=== PATIENT | female | born 1985 | race Caucasian/White ===

== ENCOUNTER 2023-01-03 02:05 | Inpatient (IN) ==
[2023-01-03] MEDS ORDERED: Promethazine INJ(RESTRICTED) 25 MG/ML 1 ml VIAL IV PRN (04:20)
[2023-01-03] MEDS ORDERED: Lactated Ringers 1000 ml BAG 1,000 ML IV ONE ×2 (04:20→05:40)
[2023-01-03] MEDS ORDERED: Buffered Lidocaine 1% SYRIN 1 ml INTRADERM ONE (04:20)
[2023-01-03] MEDS ORDERED: Nalbuphine 10 MG/ML 1 ML VIAL IV PRN (04:20)
[2023-01-03] MEDS ORDERED: OBEPIDURAL (200 ML) 200 ML EPIDURAL ONE (04:33)
[2023-01-03] MEDS ORDERED: Lidocaine 1% w EPI 1:200,000 SDV 30 ML VIAL ONE (04:34)
[2023-01-03 04:59] LABS: ABS Lymphocytes 1.4 10^3/uL (1.0-4.8); ABS Nucleated RBC 0.01 10^3/ul; Eosinophil % 0.1 %; Hematocrit 36.3 % (35-45); Hemoglobin 12.8 g/dL (11.5-14.3); Lymphocyte % 7.9 %; Mean Corpuscular Hemoglobin 34.1 pg (27-33); Mean Corpuscular Hgb Conc 35.2 g/dL (31-36); Mean Platelet Volume 7.8 fL (7.5-11.2); Nucleated Red Blood Cells % 0.1 /100 WBC (0.0-0.4); Platelet Count 192 10^3/uL (150-450); Red Blood Count 3.74 10^6/uL (3.63-4.92); Red Cell Distribution Width 13.4 % (12-17); White Blood Count 17.4 10^3/uL (3.8-11.8)
[2023-01-03] MEDS ORDERED: Lactated Ringers 1000 ml BAG 1,000 ML IV SCH ×4 (05:00→11:00)
[2023-01-03 05:14] LABS: Urine Benzodiazepine Screen None Detected (None Detect); Urine Cannabinoids Screen None Detected (None Detect); Urine Opiates Screen None Detected (None Detect)
[2023-01-03] MEDS ORDERED: Sodium Citrate/Citric Acid LIQ 15 ML UDC PO PRN (05:40)
[2023-01-03] MEDS ORDERED: Phenylephrine 40 mcg/mL 10mL (400mcg) SYRINGE IV PUSH PRN ×2 (05:40)
[2023-01-03] MEDS ORDERED: Lactated Ringers 1000 ml BAG 500 ML IV PRN ×2 (05:40)
[2023-01-03] MEDS ORDERED: OBEPIDURAL (200 ML) 200 ML EPIDURAL SCH (06:00)
[2023-01-03 06:38] LABS: Urine Appearance Cloudy; Urine Bilirubin Negative (Negative); Urine Blood 2+ (Negative); Urine Color Amber; Urine Glucose Negative (Negative); Urine Ketones Trace (Negative); Urine Nitrite Negative (Negative); Urine Protein 1+(30 mg/dL) (Negative); Urine Specific Gravity 1.026 (1.002-1.030); Urine Urobilinogen Negative (Negative)
[2023-01-03 06:41] LABS: Urine Bacteria Absent (Absent); Urine Red Blood Cell 3+(>10/hpf) (Absent); Urine Squamous Epithelial Cell Present (Absent); Urine White Blood Cell 1+(6-10/hpf) (Absent)
[2023-01-03] MEDS ORDERED: Oxytocin in LR 20,000 MILLI.UNIT/1,000 ML BAG IV SCH ×2 (09:30→10:45)
[2023-01-03] MEDS ORDERED: Glycerin ADULT 2.4 gm SUPP PR PRN (10:39)
[2023-01-03] MEDS: Witch Hazel PAD JAR TOPICAL PRN (13:36)
[2023-01-03] MEDS: Dibucaine 1% OINT 28.35 GM TUBE PR PRN (13:37)
[2023-01-04 06:54] LABS: ABS Basophils 0.1 10^3/uL (0.0-0.1); ABS Eosinophils 0.1 10^3/uL (0.0-0.5); ABS Lymphocytes 2.4 10^3/uL (1.0-4.8); ABS Neutrophils 10.1 10^3/uL (1.5-7.6); ABS Nucleated RBC 0.01 10^3/ul; Eosinophil % 0.5 %; Hematocrit 28.6 % (35-45); Hemoglobin 10.2 g/dL (11.5-14.3); Lymphocyte % 17.8 %; Mean Corpuscular Hemoglobin 35.2 pg (27-33); Mean Corpuscular Hgb Conc 35.6 g/dL (31-36); Mean Corpuscular Volume 98.6 fL (80-97); Mean Platelet Volume 7.4 fL (7.5-11.2); Nucleated Red Blood Cells % 0.1 /100 WBC (0.0-0.4); Platelet Count 167 10^3/uL (150-450); Red Cell Distribution Width 13.3 % (12-17); White Blood Count 13.7 10^3/uL (3.8-11.8)
[2023-01-04] MEDS: Dibucaine 1% OINT 28.35 GM TUBE PR PRN (20:39)
[2023-01-04] MEDS: Witch Hazel PAD JAR TOPICAL PRN (20:39)
[2023-01-05 08:26] VITALS: BP 105/65
== END 2023-01-05 11:13 | disposition home or self-care (01) | DRG 560 ==
LOC: MCHOBOUT 02:05 → MCHOB 03:00
PROVIDERS: ADMIT Obstetrics & Gynecology; ATTEND Obstetrics & Gynecology